=== PATIENT | male | born 1965 | race Hispanic/Latino ===

== ENCOUNTER 2019-05-05 14:31 | Emergency (ER) | payer OTHER ==
[2019-05-05] MEDS ORDERED: ORPHENADRINE CITRATE 30 MG/ML ML ONE (15:35)
[2019-05-05] MEDS ORDERED: IBUPROFEN 600 MG TABLET ONE (15:37)
== END 2019-05-05 16:26 | disposition home or self-care (01) ==
LOC: EDH 14:31
DX: S06.0X0A Concussion without loss of consciousness, initial encounter (principal); S40.012A Contusion of left shoulder, initial encounter; S20.212A Contusion of left front wall of thorax, initial encounter; S50.11XA Contusion of right forearm, initial encounter; I10 Essential (primary) hypertension; V49.49XA Driver injured in collision with other motor vehicles in traffic accident, initial encounter; Y93.89 Activity, other specified; Y92.89 Other specified places as the place of occurrence of the external cause; Y99.8 Other external cause status
CPT/HCPCS: 71101; 73030; 96372; 99284; J2360